=== PATIENT | male | born 1940 | race Caucasian/White ===

== ENCOUNTER 2020-02-03 16:02 | Emergency (ER) | payer MEDICARE ==
[~2020-02-03] VITALS: Ht 177.8 cm; Wt 89.0 kg
[~2020-02-03 16:02] MED LIST: AMIO200T42 PO; AMIO400T5 PO; AMLO10TA8 PO; ASPI-496 PO; CEFD300C37 PO; CLOP75TA52 PO; DOCU-131 PO; ESCI20TA10 PO; FINA5TAB4 PO; FURO-93 PO; HYDR-3245 PO; LOSA100T14 PO; LOSA25TA2 PO; LOSA50TA14 PO; METF10002 PO; METO25TA35 PO/NG; OMEG1000 PO; OMEP40CA42 PO; POTA10TA5 PO; QUIN20TA17 PO; SIMV20TA PO; TAMS0.4C2 PO; TRAZ50TA66 PO
--- NOTE | 2020-02-03 16:12 | NUR ---
patient ziyad daniels from home for hip pain in left hip. no shortening, no rotation. he has chronic hip pain, but states this pain diffently. he arrives wt a pelvic binder on, will await to remove it with MD. states pain a 1 of 10 but he's just concerned. patient also states recent falls in past year, and unsure why. states he's had "every possible test done". 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
[2020-02-03] MEDS ORDERED: MECLIZINE CHEWABLE 25 MG TAB PO ONE (17:00)
[2020-02-03 17:04] LABS: ALANINE AMINOTRANSFERASE 18 U/L (12-78); ALBUMIN 3.6 g/dL (3.4-5.0); ANION GAP 8 mmol/L (5-15); CHLORIDE 104 mmol/L (98-107)
[2020-02-03] MEDS ORDERED: MECLIZINE CHEWABLE 25 MG TAB ONE (17:04)
[2020-02-03 17:09] LABS: ALKALINE PHOSPHATASE 116 U/L (45-117); BILIRUBIN,TOTAL 0.3 mg/dL (0.2-1.0); CREATININE 1.15 mg/dL (0.7-1.3); TOTAL PROTEIN 7.3 g/dL (6.4-8.2); TROPONIN I < 0.015 ng/mL (0.000-0.045)
--- NOTE | 2020-02-03 17:09 | NUR ---
patient back from radiology, on [facility], medicated. awaiting results. pain 5/10 left hip
[2020-02-03 17:12] LABS: BASOPHILS # (AUTO) 0.03 x10^3/uL (0-0.1); BASOPHILS % (AUTO) 1 % (0-1); EOSINOPHILS # (AUTO) 0.22 x10^3/uL (0-0.4); EOSINOPHILS % (AUTO) 3 % (1-7); LYMPHOCYTES # (AUTO) 1.63 x10^3/uL (1-3.4); LYMPHOCYTES % (AUTO) 25 % (22-44); MD NO; MEAN CORPUSCULAR HEMOGLOBIN 30.5 pg (27.5-34.5); MEAN CORPUSCULAR HGB CONC 32.8 g/dL (33.2-36.2); MEAN CORPUSCULAR VOLUME 92.8 fL (81-97); MEAN PLATELET VOLUME 7.5 fL (7.4-10.4); MONOCYTES # (AUTO) 0.44 x10^3/uL (0.2-0.8); MONOCYTES % (AUTO) 7 % (2-9); NEUTROPHILS # (AUTO) 4.27 x10^3/uL (1.8-6.8); NEUTROPHILS % (AUTO) 65 % (42-75); PLATELET COUNT 313 x10^3/uL (130-400); RED BLOOD COUNT 4.17 x10^6/uL (4.38-5.82); RED CELL DISTRIBUTION WIDTH 13.7 % (9.4-14.8)
[2020-02-03] MEDS ORDERED: ESCI10TA PO (17:32)
--- NOTE | 2020-02-03 18:25 | NUR ---
patient got up and walks well. they feel safe to go home and are ready. he then stood to pee
[2020-02-03 18:55] VITALS: BP 145/78
== END 2020-02-03 19:23 | disposition home or self-care (01) ==
LOC: ED 18:14
DX: S70.02XA Contusion of left hip, initial encounter (principal); M54.5 Low back pain; R42 Dizziness and giddiness; R51 Headache; R94.31 Abnormal electrocardiogram [ECG] [EKG]; I10 Essential (primary) hypertension; E11.9 Type 2 diabetes mellitus without complications; I25.2 Old myocardial infarction; I25.10 Atherosclerotic heart disease of native coronary artery without angina pectoris; Z95.1 Presence of aortocoronary bypass graft; W01.0XXA Fall on same level from slipping, tripping and stumbling without subsequent striking against object, initial encounter; Y93.89 Activity, other specified; Y92.009 Unspecified place in unspecified non-institutional (private) residence as the place of occurrence of the external cause; Y99.8 Other external cause status
CPT/HCPCS: 36415; 70450; 72110; 80053; 84484; 85025; 93005; 99285